=== PATIENT | female | born 1980 | race Caucasian/White ===

== ENCOUNTER → 2021-02-07 | Outpatient (CLI) | payer MEDICAID ==
[2021-01-26 12:17] VITALS: BP 101/67
[~2021-02-07] MED LIST: BACL10TA PO; BUSP30TA PO; CELE100C PO; CIME400T PO; CYAN500L4 SL; DIVA250T PO; DIVA500T2 PO; DULO60CA6 PO; GADOTERATE 7.5 MMOL/15ML VIAL. IVP ONE; HYDR-2769 PO; LEVO50CA3 PO; OMEP40CA7 PO
--- NOTE | 2021-02-07 15:45 | KCIC ---
MRI of the Brain without and with Contrast 02/07/2021 Clinical History: Epilepsy since the age of 23. Technique: Unenhanced T1-weighted sagittal and axial and FLAIR, T2-weighted, gradient echo and diffus ion-weighted axial images of the brain were obtained. Additionally thin section T2-weighted and FLAIR coronal images through the temporal lobes were obtained. After the intravenous administration of 20 cc of Clariscan, enhanced T1-weighted axial, sagittal and coronal images of the brain were obtained. Findings: Comparison is made to a CT scan of the head dated 01/28/2021. The ventricles and sulci are within normal limits in size and configuration. No area of significant a bnormal signal intensity is seen involving the brain parenchyma. No extra-axial fluid collection is n oted. There is no MRI evidence of acute ischemia/infarction. No area of abnormal contrast enhancement is seen. Images through the temporal lobes are within normal limits. Mild mucosal thickening in seen scattered throughout the paranasal sinuses. A 1 cm mucous retention c yst is seen involving the right maxillary sinus. Normal flow voids are seen within the major vascular structures surrounding the brain parenchyma. IMPRESSION: Negative study. Electronically signed by: Bharathi Silva MD (02/07/2021 3:43 PM) [id number]
== END ==
LOC: KCIC MRI 11:00
PROVIDERS: ATTEND Psychiatry & Neurology Neurology with Special Qualifications in Child Neurology
DX: G40.909 Epilepsy, unspecified, not intractable, without status epilepticus (principal); J34.1 Cyst and mucocele of nose and nasal sinus
CPT/HCPCS: 70553; A9575